=== PATIENT | female | born 1970 | race Two or more races ===

== ENCOUNTER 2022-06-18 13:23 | Inpatient (IN) | payer MEDICAID ==
[~2022-06-18] VITALS: Ht 160 cm; Wt 80.4 kg
[~2022-06-18 13:23] MED LIST: PHE100C PO; SULF-35 PO
[2022-06-18 14:26] LABS: Urine Bacteria NONE SEEN /hpf (None Seen); Urine Blood Negative /uL (Negative); Urine WBC 22 /hpf (0 - 5)
[2022-06-18 14:26] LABS: Basophils # (auto) 0 10 ^3/uL (0-0.2); Basophils % (auto) 0.2 % (0.0-2.0); Eosinophils # (auto) 0.1 10 ^3/uL (0-0.8); Hematocrit 43.1 % (36.0-46.0); Hemoglobin 15.3 g/dL (12.2-16.2); Lymphocytes # (auto) 0.9 10 ^3/uL (0.4-5.4); Lymphocytes % (auto) 8.9 % (10.0-50.0); Mean Corpuscular Hemoglobin 31.8 pg (28.0-32.0); Mean Corpuscular Hgb Conc. 35.4 g/dL (32.0-36.0); Mean Corpuscular Volume 89.8 fL (80.0-100.0); Monocytes # (auto) 0.5 10 ^3/uL (0-1.3); Monocytes % (auto) 5.3 % (0.0-12.0); Neutrophils # (auto) 8.6 10 ^3/uL (1.6-8.6); Neutrophils % (auto) 84.6 % (37.0-80.0); Nucleated Red Blood Cells % 0.1 %; Red Cell Distribution Width 13.3 % (11.8-14.3); White Blood Cell 10.2 10^3/uL (4.4-10.8)
[2022-06-18 14:39] LABS: Albumin 4.5 g/dL (3.4-5.0); BUN/Creatinine Ratio 25.3; Calcium 9.3 mg/dL (8.5-10.1); Potassium 4.3 mmol/L (3.5-5.1)
[2022-06-18 14:41] LABS: Bilirubin, Total 0.6 mg/dL (0.2-1.0); Total Protein 7.7 g/dL (6.4-8.2)
[2022-06-18] MEDS ORDERED: PANTOPRAZOLE 40 MG/10 ML VIAL INJ IV ONE ×2 (15:15→16:30)
[2022-06-18] MEDS ORDERED: PANTOPRAZOLE 40mg/50ML NS AE 50 ML IV ONE (15:15)
[2022-06-18] MEDS ORDERED: cefTRIAXone 1GM/50ML D5W 50 ML IV ONE (15:15)
[2022-06-18] MEDS ORDERED: PANTOPRAZOLE 80 MG in SODIUM CHL 0.9% 100 ML IV ONE (15:30)
[2022-06-18] MEDS ORDERED: IOHEXOL 300 MG/ML 100ML BOTTLE IJ ONE (16:03)
[2022-06-18] MEDS ORDERED: SODIUM CHLORIDE 0.9% 1,000 ML IV ONE (16:30)
[2022-06-18] MEDS ORDERED: MORPHINE SULFATE INJ 2 MG/ml SYRG IV PRN (16:30)
[2022-06-18] MEDS ORDERED: NITROGLYCERIN 0.4 MG SL TAB SL PRN (16:30)
[2022-06-18] MEDS ORDERED: DOCUSATE SOD 100 MG CAP PO PRN (16:30)
[2022-06-18] MEDS: ONDANSETRON HCL 4 MG/2 ML VIAL IV PRN (20:14)
[2022-06-19 05:00] VITALS: BP 100/54
[2022-06-19 06:28] LABS: Basophils # (auto) 0 10 ^3/uL (0-0.2); Basophils % (auto) 0.2 % (0.0-2.0); Eosinophils # (auto) 0 10 ^3/uL (0-0.8); Eosinophils % (auto) 0.1 % (0.0-7.0); Hematocrit 38.8 % (36.0-46.0); Lymphocytes # (auto) 0.6 10 ^3/uL (0.4-5.4); Lymphocytes % (auto) 9.4 % (10.0-50.0); Mean Corpuscular Hemoglobin 32.3 pg (28.0-32.0); Mean Corpuscular Hgb Conc. 36.2 g/dL (32.0-36.0); Mean Corpuscular Volume 89.3 fL (80.0-100.0); Monocytes # (auto) 0.4 10 ^3/uL (0-1.3); Monocytes % (auto) 6.9 % (0.0-12.0); Neutrophils # (auto) 5.1 10 ^3/uL (1.6-8.6); Neutrophils % (auto) 83.4 % (37.0-80.0); Nucleated Red Blood Cells % 0.1 %; Red Blood Cells 4.34 10^6/uL (4.0-5.20); Red Cell Distribution Width 13.6 % (11.8-14.3); White Blood Cell 6.1 10^3/uL (4.4-10.8)
[2022-06-19 06:40] LABS: Albumin 3.7 g/dL (3.4-5.0); Calcium 8.4 mg/dL (8.5-10.1); Potassium 3.9 mmol/L (3.5-5.1)
[2022-06-19 06:44] LABS: BUN/Creatinine Ratio 21.4; Bilirubin, Total 0.7 mg/dL (0.2-1.0); Total Protein 6.6 g/dL (6.4-8.2)
[2022-06-19] MEDS: ONDANSETRON HCL 4 MG/2 ML VIAL IV PRN (08:31)
[2022-06-19 09:00] VITALS: BP 117/68
[2022-06-19] MEDS ORDERED: PANTOPRAZOLE 40 MG/10 ML VIAL INJ IV SCH (10:00)
[2022-06-19 13:00] VITALS: BP 129/64
[2022-06-19] MEDS ORDERED: ASPirin 81 mg TAB PO ONE (13:30)
[2022-06-19 17:00] VITALS: BP 110/70
[2022-06-19] MEDS: ATORVASTATIN 20 MG TAB PO SCH (21:37)
[2022-06-19 22:00] VITALS: BP 105/69
[2022-06-20 05:00] VITALS: BP 105/54
[2022-06-20 07:51] LABS: Cholesterol 109 mg/dL (< 200); Triglycerides 79 mg/dL (< 150)
[2022-06-20 07:52] LABS: HDL Cholesterol 50 mg/dL (40-59); LDL Cholesterol 55 mg/dL (< 100)
[2022-06-20] MEDS: ASPirin 81 mg TAB PO SCH (08:40)
[2022-06-20 09:00] VITALS: BP 113/58
[2022-06-20 12:30] VITALS: BP 123/94
[2022-06-20] MEDS ORDERED: ASPI-325 PO (15:15)
[2022-06-20] MEDS ORDERED: ATOR20TA50 PO (15:15)
[2022-06-20 17:00] VITALS: BP 123/71
[2022-06-20] MEDS: ATORVASTATIN 20 MG TAB PO SCH (21:48)
[2022-06-20 23:41] VITALS: BP 134/76
[2022-06-21 05:55] VITALS: BP 115/71
[2022-06-21 08:00] VITALS: BP 130/73
[2022-06-21 09:00] VITALS: BP 130/73
[2022-06-21] MEDS: ASPirin 81 mg TAB PO SCH (09:26)
[2022-06-21] MEDS ORDERED: POLY33504 PO (11:28)
[2022-06-21 12:42] VITALS: BP 130/70
[2022-06-21 13:00] VITALS: BP 130/70
== END 2022-06-21 16:00 | disposition home or self-care (01) | DRG 204 ==
LOC: ER 13:23 → TELE 16:32 → TELE-CENTR 23:01
PROVIDERS: ADMIT Nurse Practitioner Family; ATTEND Student in an Organized Health Care Education/Training Program
DX: R55 Syncope and collapse (principal); K92.2 Gastrointestinal hemorrhage, unspecified; G40.909 Epilepsy, unspecified, not intractable, without status epilepticus; E66.9 Obesity, unspecified; R42 Dizziness and giddiness; Z20.822 Contact with and (suspected) exposure to COVID-19; F32.A Depression, unspecified; N39.0 Urinary tract infection, site not specified; Z82.49 Family history of ischemic heart disease and other diseases of the circulatory system; Z83.3 Family history of diabetes mellitus; Z71.3 Dietary counseling and surveillance; Z90.710 Acquired absence of both cervix and uterus; Z68.31 Body mass index [BMI] 31.0-31.9, adult; Z91.199 Patient's noncompliance with other medical treatment and regimen due to unspecified reason; Z86.73 Personal history of transient ischemic attack (TIA), and cerebral infarction without residual deficits
CPT/HCPCS: 36415; 70450; 71046; 74177; 80053; 80061; 81001; 82962; 83036; 83735; 83880; 84484; 85025; 86850; 86900; 86901; 87426; 87804; 93005; 93306; 93886; 96365; 96375; C9113; G0378; J0696; J2405